=== PATIENT | male | born 2000 | race Hispanic/Latino ===

== ENCOUNTER 2025-02-07 13:39 | Emergency (ER) | payer SELFPAY ==
[~2025-02-07] VITALS: Ht 188 cm; Wt 145.1 kg
[2025-02-07 14:22] VITALS: PULSE 93; RESP 18; TEMP 98.9
[2025-02-07] MEDS: KETOROLAC TROMETHAMINE 30 MG/ML VIAL IM STA (15:42)
[2025-02-07] MEDS: ORPHENADRINE CITRATE 30 MG/ML VIAL IM ONE (15:43)
[2025-02-07] MEDS ORDERED: METHOCARBAMOL750 MG PO (16:37)
[2025-02-07 18:49] VITALS: BP 124/65; PULSE 74; RESP 18; TEMP 98.6; O2SAT 98
== END 2025-02-07 16:46 | disposition home or self-care (01) ==
LOC: ER 14:57
DX: M54.6 Pain in thoracic spine (principal); S29.012A Strain of muscle and tendon of back wall of thorax, initial encounter; M54.50 Low back pain, unspecified; X58.XXXA Exposure to other specified factors, initial encounter
CPT/HCPCS: 72128; 72131; 99283; J1885; J2360